=== PATIENT | female | born 1955 | race Two or more races ===

== ENCOUNTER → 2017-06-15 | Outpatient (CLI) | payer OTHER ==
[2014-07-18 22:18] VITALS: BP 141/87
[~2017-06-15] MED LIST: AMLO5TAB2 PO; ASPI325T8 PO; ESOM40CA25 PO; VALS40TA2 PO
--- NOTE | 2017-06-15 15:09 | CARD ---
APPROVED REPORT EXAM: Two-dimensional and M-mode echocardiogram with Doppler and color Doppler. Other Information Quality : GoodHR: 69bpm Rhythm : NSR INDICATION Cardiac Disease: CAD 2D DIMENSIONS RVDd3.1 (2.9-3.5cm)Left Atrium(2D)3.2 (1.6-4.0cm) IVSd1.0 (0.7-1.1cm)Aortic Root(2D)3.0 (2.0-3.7cm) LVDd4.0 (3.9-5.9cm)LVOT Diameter2.3 (1.8-2.4cm) PWd1.0 (0.7-1.1cm)LVDs2.7 (2.5-4.0cm) FS (%) 32.4 %SV43.3 ml LVEF(%)61.3 (>50%) Aortic Valve AoV Peak Scott.124.9cm/sAoV VTI23.7cm AO Peak GR.6.2mmHgLVOT Peak Scott.92.6cm/s AO Mean GR.3mmHgAVA (VMAX)3.07cm2 Mitral Valve MV E Hqbkjozo83.1cm/sMV E Peak Gr.4mmHg MV DECEL [id number] A Cpeidlan76.3cm/s MV E Mean Gr.1mmHgE/A Ratio0.7 MV A Egkmlkmp82ee Pulmonary Valve PV Peak Uwyvhidc52.7cm/s Tricuspid Valve TR P. Towaxkwu203xx/sTR Peak Gr.23mmHg Pulmonary Vein S1 Uptsefws86.2cm/sD2 Wibroixt82.8cm/s PVa wwlqadci17msad LEFT VENTRICLE The left ventricle is normal size. There is normal left ventricular wall thickness. The left ventricu lar systolic function is normal and the ejection fraction is within normal range. The Ejection Fracti on is 60-65%. There is normal LV segmental wall motion. Transmitral Doppler flow pattern is Grade I-a bnormal relaxation pattern. RIGHT VENTRICLE The right ventricle is normal size. There is normal right ventricular wall thickness. The right ventr icular systolic function is normal. ATRIA The left atrium size is normal. The right atrium size is normal. The interatrial septum is intact wit h no evidence for an atrial septal defect or patent foramen ovale as noted on 2-D or Doppler imaging. AORTIC VALVE The aortic valve is mildly sclerotic. The aortic valve is trileaflet. Doppler and Color Flow revealed no significant aortic regurgitation. There is no significant aortic valvular stenosis. MITRAL VALVE Mitral annular calcification is mild. The mitral valve leaflets are thickened. There is no evidence o f mitral valve prolapse. There is no mitral valve stenosis. Doppler and Color Flow revealed no mitral valve regurgitation noted. TRICUSPID VALVE Doppler and Color Flow revealed trace tricuspid regurgitation. The pulmonary artery systolic pressure is estimated at 26 mmHg. PULMONIC VALVE The pulmonary valve is not well visualized but appears to open adequately. Doppler and Color Flow rev ealed pulmonic valvular regurgitation. There is no pulmonic valvular stenosis by spectral Doppler. GREAT VESSELS The aortic root is normal in size. The ascending aorta is normal in size. The pulmonary artery is nor mal. The IVC is normal in size and collapses >50% with inspiration. PERICARDIAL EFFUSION There is no evidence of significant pericardial effusion. Critical Notification Critical Value: No <Conclusion> The left ventricle is normal size. The left ventricular systolic function is normal and the ejection fraction is within normal range. The Ejection Fraction is 60-65%. There is no significant aortic valvular stenosis. Doppler and Color Flow revealed no significant aortic regurgitation. Doppler and Color Flow revealed no mitral valve regurgitation noted. Doppler and Color Flow revealed trace tricuspid regurgitation. The pulmonary artery systolic pressure is estimated at 26 mmHg.
== END | disposition home or self-care (01) ==
LOC: ECHO 09:48
PROVIDERS: ATTEND Internal Medicine Cardiovascular Disease
DX: I25.10 Atherosclerotic heart disease of native coronary artery without angina pectoris (principal)
CPT/HCPCS: 93306

== ENCOUNTER 2018-07-30 18:02 | Emergency (ER) | payer BC, OTHER ==
[~2018-07-30] VITALS: Ht 144.8 cm; Wt 65.8 kg
[~2018-07-30 18:02] MED LIST changes: -AMLO5TAB2 PO; +AMLO5TAB7 PO
[2018-07-30] MEDS ORDERED: fentaNYL PF VIAL 100 MCG/2 ML VIAL IV ONE ×2 (18:15→19:30)
--- NOTE | 2018-07-30 18:16 | PHYS DOC ---
Past Medical History Past Medical History: Hypertension, MO Past Surgical History: Hysterectomy Alcohol Use: None Drug Use: None Adult General Chief Complaint Chief Complaint: ANKLE PROBLEM HPI HPI Patient is a 62 year old female who presents with right ankle injury. Patient was at home in her kitchen. She had a mechanical fall and suffered an plantar inversion type injury to the right lower extremity. She complained of a formerly and pain and swelling to the right ankle. She did not sustain any additional injuries during the fall. She arrives to the ER complaining only of pain and swelling. Review of Systems Review of Systems Constitutional: Denies fever or chills Eyes: Denies change in visual acuity HENT: Denies nasal congestion Respiratory: Denies cough or shortness of breath Cardiovascular: No additional information not addressed in HPI GI: Denies abdominal pain, nausea : Denies dysuria Musculoskeletal: Denies back pain Integument: Denies rash or skin lesions Neurologic: Denies headache All other systems were reviewed and found to be within normal limits, except as documented in this note. Current Medications Current Medications Current Medications Medications (Trade) Dose Ordered Sig/Joseph Start Time Stop Time Status Last Admin Dose Admin Acetaminophen/ Hydrocodone Bitart (Lortab 7.5/325) 1 tab 1X ONCE 07/30/18 20:00 07/30/18 20:01 DC 07/30/18 20:00 1 TAB Fentanyl Citrate (Fentanyl 2ml Vial) 50 mcg 1X ONCE 07/30/18 19:30 07/30/18 19:31 DC 07/30/18 19:34 50 MCG Ondansetron HCl (Zofran) 4 mg STK-MED ONCE 07/30/18 19:28 07/30/18 19:29 DC Allergies Allergies Allergies Coded Allergies Type Severity Reaction Last Updated Verified No Known Drug Allergies 07/18/14 No Physical Exam Physical Exam Constitutional: Well developed, well nourished, no acute distress HENT: Normocephalic, atraumatic, bilateral external ears normal, oropharynx moist Neck: Normal range of motion Cardiovascular:Heart rate regular rhythm, no murmur Lungs & Thorax: Bilateral breath sounds clear to auscultation Abdomen: Bowel sounds normal, soft, no tenderness Skin: Warm, dry, no erythema, no rash Extremities: pain, swelling, deformity right ankle. 2+ dp pulses. Sensation to light touch intact over all dermatomes Neurologic: Alert and oriented X 3 Psychologic: Affect normal Current Patient Data Vital Signs Vital Signs Date Time Temp Pulse Resp B/P (MAP) Pulse Ox O2 Delivery O2 Flow Rate FiO2 07/30/18 20:00 14 98 Room Air 07/30/18 19:54 59 121/56 (77) 07/30/18 18:16 98.4 98.4 EKG EKG [] Radiology/Procedures Radiology/Procedures Xray tib/fib and right ankle: FINDINGS: Two-view right tibia-fibula show subtle bony fragmentation of the anterior tibia seen only on the lateral view. The proximal fibula appears to be intact. There is mild degenerative changes of the knee. 3 views of the right ankle show an oblique fracture of the distal fibula, mildly displaced. There is also a vertically oriented fracture of the posterior malleolus, mildly displaced. Possible subtle nondisplaced fracture of the medial malleolus. The talar dome is intact. There are some bony fragments of the joint space. Diffuse soft tissue swelling. IMPRESSION: 1. Mildly displaced fracture of the distal fibula. 2. Mildly displaced fracture of the posterior malleolus. 3. Possible subtle nondisplaced fracture of the medial malleolus. 4. Small bony fragment along the anterior margin of the tibia seen only on the lateral view, indeterminate. This could represent a loose body or a small fracture. If indicated, dedicated knee films could better evaluate. Course & Med Decision Making Course & Med Decision Making Pertinent Labs and Imaging studies reviewed. (See chart for details) 18:10: Patient is seen and examined. IV pain meds ordered. Xray will be ordered after pain meds given. 19:10: X-ray results are returned. I consulted via telephone with orthopedist psychosocial rehabilitation counselor who recommended a splint and follow-up in that office. Leg splint is ordered. Additional pain medications are given to the patient prior to application of the splint. Post-splint exam. The toes distal to the splint are pink with brisk capillary refill. She is able to sense light touch and move the toes. Splint appears appropriately placed. Patient will follow up with Dr. Espinosa. Ibuprofen and Kitt[place] prescriptions are provided for pain control at home. Dragon Disclaimer Dragon Disclaimer This electronic medical record was generated, in whole or in part, using a voice recognition dictation system. Departure Departure Disposition: HOME, SELF-CARE Condition: GOOD Referrals: THERESA MORGAN MD (PCP) Scripts Hydrocodone/Apap 5-325 (NORCO 5-325 TABLET) 1 Each Tablet 1-2 EACH PO PRN Q6HRS PRN for SEVERE PAIN, #30 as needed for pain Prov: MALCOLM TA DO 07/30/18 Ibuprofen (IBUPROFEN) 800 Mg Tablet 800 MG PO PRN TID PRN for MILD PAIN, #30 TAB take with food or milk to avoid upsetting stomach Prov: MALCOLM TA DO 07/30/18 MALCOLM TA DO Jul 30, 2018 18:16
--- NOTE | 2018-07-30 18:54 | RAD ---
Two-view right tibia-fibula and three-view right ankle dated 07/30/2018. No comparison available. Clinical data indication: Pain after injury. FINDINGS: Two-view right tibia-fibula show subtle bony fragmentation of the anterior tibia seen only on the lateral view. The proximal fibula appears to be intact. There is mild degenerative changes of the knee. 3 views of the right ankle show an oblique fracture of the distal fibula, mildly displaced. There is also a vertically oriented fracture of the posterior malleolus, mildly displaced. Possible subtle nondisplaced fracture of the medial malleolus. The talar dome is intact. There are some bony fragments of the joint space. Diffuse soft tissue swelling. IMPRESSION: 1. Mildly displaced fracture of the distal fibula. 2. Mildly displaced fracture of the posterior malleolus. 3. Possible subtle nondisplaced fracture of the medial malleolus. 4. Small bony fragment along the anterior margin of the tibia seen only on the lateral view, indeterminate. This could represent a loose body or a small fracture. If indicated, dedicated knee films could better evaluate. Electronically signed by: Neri Wells MD (07/30/2018 6:51 PM) [facility]
[2018-07-30] MEDS ORDERED: ONDANSETRON PF 4 MG/2 ML VIAL. ONE (19:28)
[2018-07-30] MEDS ORDERED: ONDANSETRON PF 4 MG/2 ML VIAL. IV ONE (19:30)
[2018-07-30] MEDS ORDERED: IBUP-1060 PO (19:53)
[2018-07-30] MEDS ORDERED: HYDR-971 PO (19:53)
[2018-07-30 19:54] VITALS: BP 121/56
[2018-07-30] MEDS ORDERED: HYDROcodone/APAP 7.5/325MG 1 TAB TABLET PO ONE (20:00)
== END 2018-07-30 20:15 | disposition home or self-care (01) ==
LOC: ER 18:02
DX: S82.832A Other fracture of upper and lower end of left fibula, initial encounter for closed fracture (principal); S82.892A Other fracture of left lower leg, initial encounter for closed fracture; I10 Essential (primary) hypertension; I25.2 Old myocardial infarction; Z90.710 Acquired absence of both cervix and uterus; W18.39XA Other fall on same level, initial encounter; Y93.89 Activity, other specified; Y92.89 Other specified places as the place of occurrence of the external cause; Y99.8 Other external cause status
CPT/HCPCS: 29515; 73590; 73610; 96374; 96375; 96376; 99284; J2405; J3010

== ENCOUNTER → 2018-11-08 | Outpatient (CLI) | payer BC ==
[~2018-11-08] MED LIST changes: +AMLO5TAB10 PO; -AMLO5TAB7 PO; +HYDR-3164 PO; +IBUP-1060 PO; +REGADENOSON 0.4 MG/5 ML DISP.SYRIN. IV ONE
--- NOTE | 2018-11-08 14:55 | RAD ---
MR#: [id number] Date of Study: 11/08/2018 Ordering Physician: JAIMIE DOWNING Referring Physician: TEJAS COULTER Tech: RT Art NolenR) (N) APPROVED REPORT Test Type: Pharmacological Stress Nurse/Tech: Viri Fuentes RN Test Indications: CAD, angina Cardiac History: HTN, CAD, cath 4 years ago-small vessels, no intervention Medications: See Electronic Medical Record Medical History: See Electronic Medical Record Resting ECG: SR Resting Heart Rate: 80 bpm Resting Blood Pressure: 146/78mmHg Pretest Chest Pain: None Nurse/Tech Notes Lungs CTA, S1S2 Consent: The procedure was explained to the patient in lay terms. Informed consent was witnessed. Reece eout was entered into [employer]. History and Stress Test performed by Viri Fuentes RN Pharm. Details Pharmacologic stress testing was performed using 0.4mg per 5ml of regadenoson given intravenously ove r 7-10 seconds. Stress Symptoms headache, no chest pain POST EXERCISE Reason for Termination: Infusion complete Max HR: 116 bpm Max Blood Pressure: 134/69mmHg Blood Pressure response to exercise: Normal blood pressure response during stress. Heart Rate response to exercise: normal response Chest Pain: No. Arrhythmia: No. ST Change: No. INTERPRETATION Stress EKG Conclusion: The baseline EKG shows a sinus rhythm with mild nonspecific ST segment changes . The stress EKG shows no significant changes from baseline. No EKG evidence of stress-induced ischemia. Imaging Protocol IMAGE PROTOCOL: Rest Tc-99m/stress Tc-99m 1 day Rest: Stress: Viability: Radiopharm.Tc99m MtlqqkptxSs38q Sestamibi Wejc16zLe 33mCi Duration 13min. 13min. Img Date 11/08/2018 11/08/2018 Inj-Img Qarz06hgm. 60min. Rest Admin Site:IV - Right AntecubitalAdministrator:RT Callum (R)(N) Stress Admin Site: IV - Right AntecubitalAdministrator: ARIEL Marie STRESS DATA End Diast. Vol.49.0mlLVEDV index BSA28.0ml End Syst. Vol.8.0mlLVESV index BSA5.0ml Myocardial Mass92.0gEject. Juwaofsu41.0% Stress Scores Regional WT0.00Summed WT0.00 Regional WM0.00Summed WM2.00 LV Perfusion The stress scans showed no significant defects. The rest scans showed no significant defects. Nuclear imaging shows no reversible ischemia or infarct. Wall Motion Left ventricular systolic function is normal with no regional wall motion abnormalities and an ejecti on fraction of greater than 70%. LV Perf. Quant 17 Seg. SSS2.00 17 Seg. SRS1.00 17 Seg. SDS1.00 Stress Defect Extent (% LAD)0.00Rest Defect Extent (% LAD)0.00Rev. Defect Extent (% LAD)0.00 Stress Defect Extent (% LCX) 16.30Rest Defect Extent (% LCX)10.00Rev. Defect Extent (% LCX)6.30 Stress Defect Extent (% RCA)0.00Rest Defect Extent (% RCA)0.00Rev. Defect Extent (% RCA)0.00 Stress Defect Extent (% MIGUEL)2.80Rest Defect Extent (% MIGUEL)2.20Rev. Defect Extent (% MIGUEL)1.10 Conclusion 1. No EKG evidence of stressed induced ischemia. 2. Nuclear imaging shows no reversible ischemia or infarct. 3. Normal left ventricular systolic function with an ejection fraction of greater than 70%. 4. Low risk Lexiscan nuclear stress test. Signed by : Huan Leahy MD Electronically Approved : 11/08/2018 14:55:05
== END | disposition home or self-care (01) ==
LOC: NM 07:44
PROVIDERS: ATTEND Internal Medicine Cardiovascular Disease
DX: I25.119 Atherosclerotic heart disease of native coronary artery with unspecified angina pectoris (principal); I10 Essential (primary) hypertension
CPT/HCPCS: 78452; 93017; 96374; A9500; J2785

== ENCOUNTER → 2019-06-04 | Outpatient (CLI) | payer BC ==
[~2019-06-04] MED LIST changes: -REGADENOSON 0.4 MG/5 ML DISP.SYRIN. IV ONE
--- NOTE | 2019-06-05 10:27 | KCIC ---
Bilateral digital screening mammograms with 3-D tomosynthesis: Reason for examination: Routine screening. Comparison is made to previous studies dated 02/26/2013 and 06/18/2010. Bilateral mammograms in CC and oblique projections were obtained with 2-D imaging and 3-D tomosynthesis imaging on a [employer] Inspiration unit and reviewed on the workstation. Interpretation was made with the benefit of CAD. The skin and nipples show no abnormalities. No abnormal axillary lymph nodes are seen. The breast parenchyma is predominantly fatty. (Breast density: Category A.) There are small circumscribed nodules at the 3:00 C position of the left breast and 9:00 B position of the right breast which probably represent intramammary lymph nodes. There are no other dominant masses, suspicious calcifications or architectural distortion. Impression: No evidence of malignancy. Recommend routine screening. BI-RAD Category 2: Benign. "Our facility is accredited by the [employer] Mammography Program." This patient's information has been entered into a reminder system for the patient to be notified with the results of her examination and a target date for the next mammogram. Electronically signed by: Natalia Bergeron MD (06/05/2019 10:24 AM) [facility]
--- NOTE | 2019-06-05 14:01 | KCIC ---
EXAM: Dual energy x-ray absorptiometry (DEXA). HISTORY: Postmenopausal screening for osteoporosis. COMPARISON: None. TECHNIQUE: Dual energy x-ray absorptiometry of the lumbar spine and left hip was performed. Calculation of bone mineral density based on standard deviations above or below the expected young adult normal value (T-score) was completed. FINDINGS: LUMBAR SPINE: The AVG BMD OF the L1-L4 region = 0.862 gm/cm2, T-score = -1.7, Z-score = 0.1. Findings are consistent with osteopenia. Femoral Necks: The BMD of the total femoral neck = 0.784 gm/cm2, T-score = -1.3, Z-score = -0.2. The Findings are consistent with osteopenia. IMPRESSION: Osteopenia Electronically signed by: Ghulam Bronson MD (06/05/2019 1:58 PM) [facility]
== END | disposition home or self-care (01) ==
LOC: KCIC DEXA 14:52
PROVIDERS: ATTEND Physician Assistant Surgical
DX: Z12.31 Encounter for screening mammogram for malignant neoplasm of breast (principal); Z13.820 Encounter for screening for osteoporosis; N63.23 Unspecified lump in the left breast, lower outer quadrant; N63.11 Unspecified lump in the right breast, upper outer quadrant; M85.88 Other specified disorders of bone density and structure, other site
CPT/HCPCS: 77063; 77067; 77080

== ENCOUNTER → 2020-02-25 | Outpatient (CLI) | payer BC ==
--- NOTE | 2020-02-25 14:19 | CARD ---
MR#: [id number] Date of Study: 02/25/2020 Ordering Physician: JAIMIE DOWNING, Referring Physician: JAIMIE DOWNING, Tech: Rosa Elena Sommerlucinda APPROVED REPORT EXAM: Two-dimensional and M-mode echocardiogram with Doppler and color Doppler. Other Information Quality : AverageHR: 53bpm INDICATION Cardiac Disease: CAD RISK FACTORS Hypertension 2D DIMENSIONS RVDd3.1 (2.9-3.5cm)Left Atrium(2D)3.2 (1.6-4.0cm) IVSd1.2 (0.7-1.1cm)Aortic Root(2D)3.4 (2.0-3.7cm) LVDd4.3 (3.9-5.9cm)LVOT Diameter2.0 (1.8-2.4cm) PWd1.3 (0.7-1.1cm)LVDs3.0 (2.5-4.0cm) FS (%) 30.4 %SV48.3 ml LVEF(%)58.1 (>50%) Aortic Valve AoV Peak Scott.124.4cm/sAoV VTI30.3cm AO Peak GR.6.2mmHgLVOT Peak Scott.96.8cm/s LVOT VTI 25.44cmAO Mean GR.3mmHg [place] (VMAX)2.79lg9JOO (VTI)2.70cm2 Mitral Valve MV E Ixvpuozr03.3cm/sMV DECEL OXQM811sp MV A Tfzgsnsn34.8cm/sMV E Mean Gr.1mmHg MV ZXQ83vvQ/A Ratio0.7 MVA (PHT)2.77cm2 TDI E/Lateral E'7.9E/Medial E'8.8 Pulmonary Valve PV Peak Rhfhyavi13.0cm/sPV Peak Grad.3mmHg Tricuspid Valve TR P. Xalwuwrz088py/sRAP FQVTNRVV4lkPq TR Peak Gr.72fjOaBTVT52yjBu Pulmonary Vein S1 Aflybpat37.6cm/sD2 Varlrcqs72.5cm/s PVa moroyerv050sfmz LEFT VENTRICLE The left ventricle is normal size. There is moderate concentric left ventricular hypertrophy. The lef t ventricular systolic function is normal. The Ejection Fraction is 55-60%. There is normal LV segmen madalyn wall motion. Transmitral Doppler flow pattern is Grade I-abnormal relaxation pattern. RIGHT VENTRICLE The right ventricle is normal size. There is normal right ventricular wall thickness. The right ventr icular systolic function is normal. ATRIA The left atrium size is normal. The right atrium size is normal. The interatrial septum is intact wit h no evidence for an atrial septal defect or patent foramen ovale as noted on 2-D or Doppler imaging. AORTIC VALVE The aortic valve is normal in structure and function. Doppler and Color Flow revealed no significant aortic regurgitation. There is no significant aortic valvular stenosis. MITRAL VALVE The mitral valve is normal in structure and function. There is no evidence of mitral valve prolapse. There is no mitral valve stenosis. Doppler and Color-flow revealed trace mitral regurgitation. TRICUSPID VALVE The tricuspid valve is normal in structure and function. Doppler and Color Flow revealed trace tricus pid regurgitation with an estimated PAP of 34 mmHg. There is no tricuspid valve stenosis. PULMONIC VALVE The pulmonic valve is not well visualized. Doppler and Color Flow revealed trace to mild pulmonic keegan vular regurgitation. GREAT VESSELS The aortic root is normal in size. The IVC is normal in size and collapses >50% with inspiration. PERICARDIAL EFFUSION There is no evidence of significant pericardial effusion. Critical Notification Critical Value: No <Conclusion> The left ventricular systolic function is normal. The Ejection Fraction is 55-60%. There is normal LV segmental wall motion. Transmitral Doppler flow pattern is Grade I-abnormal relaxation pattern. Trace mitral regurgitation. Trace tricuspid regurgitation with an estimated PAP of 34 mmHg. There is no evidence of significant pericardial effusion. Signed by : Jaimie Downing, Electronically Approved : 02/25/2020 14:18:52
== END ==
LOC: ECHO 13:09
PROVIDERS: ATTEND Internal Medicine Cardiovascular Disease
DX: I37.1 Nonrheumatic pulmonary valve insufficiency (principal); I25.10 Atherosclerotic heart disease of native coronary artery without angina pectoris
CPT/HCPCS: 93306

== ENCOUNTER → 2021-01-01 | Outpatient (CLI) | payer BC ==
[~2021-01-01] MED LIST changes: +AMLO-186 PO; -AMLO5TAB10 PO; +REGADENOSON 0.4 MG/5 ML DISP.SYRIN. IV ONE
--- NOTE | 2021-01-01 11:51 | RAD ---
MR#: [id number] Date of Study: 01/01/2021 Ordering Physician: JAIMIE DOWNING, Referring Physician: TEJAS COULTER Tech: RT Callum (R) (N) APPROVED REPORT Test Type: Pharmacological Stress Nurse/Tech: Shira Mccormick R.N. Test Indications: coronary artery disease Cardiac History: cad, htn, Medications: see ehr Medical History: see ehr Resting ECG: sr Resting Heart Rate: 67 bpm Resting Blood Pressure: 125/65mmHg Pretest Chest Pain: No chest pain Nurse/Tech Notes lungs cta, heart tones regular Consent: The procedure was explained to the patient in lay terms. Informed consent was witnessed. Reece eout was entered into Normal. History and Stress Test performed by KOLBY Hoover, AUGUSTUS (R) (N) Pharm. Details Pharmacologic stress testing was performed using 0.4mg per 5ml of regadenoson given intravenously ove r 7-10 seconds. Stress Symptoms No chest pain or symptoms. POST EXERCISE Reason for Termination: Infusion complete Target HR: No Max HR: 89 bpm Max Blood Pressure: 123/63mmHg Chest Pain: No. Arrhythmia: No. ST Change: No. INTERPRETATION Stress EKG Conclusion: Baseline EKG showed sinus rhythm. No ischemic changes at peak stress. No arr hythmias. Imaging Protocol IMAGE PROTOCOL: Rest Tc-99m/stress Tc-99m 1 day Rest: Stress: Viability: Radiopharm.Tc99m QrpqkervmHk18q Sestamibi Dose10.6mCi 31mCi Duration 15min. 10min. Img Date 01/01/2021 01/01/2021 Inj-Img Vwli30tqc. 60min. Rest Admin Site:IV - Right ForearmAdministrator:KOLBY Hoover ARRT (R)(N) Stress Admin Site: IV - Right ForearmAdministrator: KOLBY Hoover, AUGUSTUS (R)(N) STRESS DATA Av. Heart Rate71.0bpmCO Index BSA0.0L/min Study quality was good. Left Ventricular size was Normal at Rest and Stress. Lung uptake was . Left Ventricular ejection fraction is 87%. The rest and stress images show normal perfusion, normal contraction and thickening. LV Perf. Quant 17 Seg. SSS2.00 17 Seg. SRS2.00 17 Seg. SDS1.00 Stress Defect Extent (% LAD)0.00Rest Defect Extent (% LAD)0.00Rev. Defect Extent (% LAD)0.00 Stress Defect Extent (% LCX) 26.30Rest Defect Extent (% LCX)12.50Rev. Defect Extent (% LCX)3.80 Stress Defect Extent (% RCA)0.00Rest Defect Extent (% RCA)0.00Rev. Defect Extent (% RCA)0.00 Stress Defect Extent (% MIGUEL)4.60Rest Defect Extent (% MIGUEL)2.20Rev. Defect Extent (% MIGUEL)0.70 Conclusion 1. Regadenoson cardioisotope stress test did not show any evidence of ischemia or infarct. 2. Normal left ventricular systolic function with ejection fraction calculated at 87%. 3. Low risk for cardiac events. Signed by : Jaimie Downing, Electronically Approved : 01/01/2021 11:51:19
== END ==
LOC: NM 09:13
PROVIDERS: ATTEND Internal Medicine Cardiovascular Disease
DX: I25.10 Atherosclerotic heart disease of native coronary artery without angina pectoris (principal)
CPT/HCPCS: 78452; 93017; A9500; J2785